=== PATIENT | female | born 2000 | race African-American/Black ===

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

== ENCOUNTER 2019-10-18 15:01 | Emergency (ER) | payer MEDICAID, OTHER ==
[~2019-10-18] VITALS: Ht 167.6 cm; Wt 63.0 kg
[~2019-10-18 15:01] MED LIST: PNV1TABL76 MT
[2019-10-18 15:20] VITALS: BP 105/62
== END 2019-10-18 15:54 | disposition home or self-care (01) ==
LOC: ER 15:01
DX: Z00.00 Encounter for general adult medical examination without abnormal findings (principal)
CPT/HCPCS: 99281

== ENCOUNTER 2020-07-12 23:10 | Emergency (ER) | payer MEDICAID, OTHER ==
[~2020-07-12] VITALS: Ht 160 cm; Wt 54.0 kg
[2020-07-13 00:02] LABS: BASOPHILS % 1.4 % (0.0-2.0); EOSINOPHILS % 4.1 % (0.0-5.0); HEMATOCRIT. 32.5 % (36.0-48.0); LYMPHOCYTES % 32.6 % (20.0-50.0); MEAN CORPUSCULAR HEMOGLOBIN 30.2 pg (28.0-32.0); MEAN CORPUSCULAR VOLUME 89.4 fL (81.0-99.0); MEAN PLATELET VOLUME 7.9 fl (7.4-10.4); MONOCYTES % 9.1 % (2.0-8.0); NEUTROPHILS % 52.8 % (40.0-76.0); PLATELET 311 x1000/uL (130-400); RED BLOOD CELL COUNT 3.63 mill/uL (4.2-5.4); RED CELL DISTRIBUTION WIDTH 14.7 % (11.6-14.6)
[2020-07-13 00:07] LABS: CHLORIDE 110 mEq/L (98-107)
[2020-07-13 00:12] LABS: ETHANOL BLOOD < 10 mg/dL
[2020-07-13 00:42] VITALS: BP 138/78
== END 2020-07-13 01:17 | disposition home or self-care (01) ==
LOC: ER 23:10
DX: F32.9 Major depressive disorder, single episode, unspecified (principal); F60.9 Personality disorder, unspecified; F17.290 Nicotine dependence, other tobacco product, uncomplicated; F12.10 Cannabis abuse, uncomplicated; F20.9 Schizophrenia, unspecified
CPT/HCPCS: 36415; 80053; 80307; 80320; 80329; 85025; 93005; 99284; G0480

== ENCOUNTER 2020-07-29 02:23 | Emergency (ER) | payer OTHER ==
[~2020-07-29] VITALS: Ht 175.3 cm; Wt 87.0 kg
[2020-07-29 04:05] VITALS: BP 134/76
== END 2020-07-29 04:34 | disposition home or self-care (01) ==
LOC: ER 02:23
DX: R42 Dizziness and giddiness (principal); Z59.0 Homelessness; Z86.59 Personal history of other mental and behavioral disorders
CPT/HCPCS: 99281

== ENCOUNTER 2021-01-27 11:17 | Emergency (ER) | payer MEDICAID, OTHER ==
[~2021-01-27] VITALS: Ht 167.6 cm; Wt 77.0 kg
[2021-01-27 11:20] VITALS: BP 135/88
== END 2021-01-27 17:47 | disposition left against medical advice (07) ==
LOC: ER 11:23
DX: R55 Syncope and collapse (principal); Z53.21 Procedure and treatment not carried out due to patient leaving prior to being seen by health care provider

== ENCOUNTER 2022-09-18 17:23 | Emergency (ER) | payer MEDICAID, OTHER ==
[~2022-09-18] VITALS: Ht 172.7 cm; Wt 84.0 kg
[2022-09-18 17:28] VITALS: O2SAT 99
[2022-09-18 20:09] LABS: BASOPHILS % 0.4 % (0.0-2.0); EOSINOPHILS % 2.1 % (0.0-5.0); HEMATOCRIT. 32.8 % (36.0-48.0); LYMPHOCYTES % 24.4 % (20.0-50.0); MEAN CORPUSCULAR HEMOGLOBIN 29.5 pg (28.0-32.0); MEAN CORPUSCULAR VOLUME 88.4 fL (81.0-99.0); MEAN PLATELET VOLUME 8.2 fl (7.4-10.4); MONOCYTES % 5.3 % (2.0-8.0); NEUTROPHILS % 67.8 % (40.0-76.0); PLATELET 358 x1000/uL (130-400); RED BLOOD CELL COUNT 3.71 mill/uL (4.2-5.4); RED CELL DISTRIBUTION WIDTH 15.1 % (11.6-14.6)
[2022-09-18 20:11] LABS: CHLORIDE 109 mEq/L (98-107)
[2022-09-18 20:15] LABS: PARTIAL THROMBOPLASTIN TIME < 21.0 sec (23.4-31.0); PROTHROMBIN TIME 10.3 sec (9.6-11.0)
[2022-09-18 20:23] LABS: ETHANOL BLOOD < 10 mg/dL (-10)
[2022-09-18 20:33] LABS: HCG SCREEN NEGATIVE
[2022-09-18 22:23] LABS: *AMPHETAMINES SCREEN URINE NEGATIVE (NEGATIVE); *BARBITURATES SCREEN URINE NEGATIVE (NEGATIVE); *BENZODIAZEPINES SCREEN URINE NEGATIVE (NEGATIVE); *COCAINE SCREEN URINE NEGATIVE (NEGATIVE); CANNABINOID URINE SCREEN NEGATIVE (NEGATIVE); METHADONE URINE SCREEN NEGATIVE (NEGATIVE); OPIATES URINE SCREEN NEGATIVE (NEGATIVE); PHENCYCLIDINE URINE SCREEN NEGATIVE (NEGATIVE)
[2022-09-19 00:41] VITALS: BP 109/61; PULSE 76; RESP 18; TEMP 98.3
== END 2022-09-19 00:58 ==
LOC: ER 17:23
DX: R07.89 Other chest pain (principal); R45.851 Suicidal ideations; F32.9 Major depressive disorder, single episode, unspecified; F20.9 Schizophrenia, unspecified; F12.10 Cannabis abuse, uncomplicated; F15.10 Other stimulant abuse, uncomplicated; Z88.0 Allergy status to penicillin
CPT/HCPCS: 36415; 71045; 80053; 80305; 80320; 83880; 84484; 84703; 85025; 93005; 99285; G0480

== ENCOUNTER 2023-05-22 01:30 | Emergency (ER) | payer MEDICAID ==
[~2023-05-22] VITALS: Ht 175.3 cm; Wt 100.0 kg
[2023-05-22 01:31] VITALS: O2SAT 99
[2023-05-22 01:54] VITALS: TEMP 98.1
[2023-05-22 03:10] LABS: BASOPHILS % 0.5 % (0.0-2.0); EOSINOPHILS % 2.1 % (0.0-5.0); HEMATOCRIT. 32.4 % (36.0-48.0); HEMOGLOBIN. 10.7 g/dL (12.0-16.0); LYMPHOCYTES % 20.5 % (20.0-50.0); MEAN CORPUSCULAR HEMOGLOBIN 26.9 pg (28.0-32.0); MEAN CORPUSCULAR HGB CONC 33.2 g/dL (31.0-37.0); MEAN CORPUSCULAR VOLUME 81.1 fL (81.0-99.0); MEAN PLATELET VOLUME 7.5 fl (7.4-10.4); MONOCYTES % 7.1 % (2.0-8.0); NEUTROPHILS % 69.8 % (40.0-76.0); PLATELET 395 x1000/uL (130-400); RED BLOOD CELL COUNT 3.99 mill/uL (4.2-5.4); RED CELL DISTRIBUTION WIDTH 15.3 % (11.6-14.6); WHITE BLOOD COUNT 9.7 x1000/uL (4.5-11.0)
[2023-05-22 03:37] LABS: ACETAMINOPHEN < 2 ug/mL (10-30); ALANINE AMINOTRANSFERASE 30 IU/L (10-49); ALBUMIN 4.7 g/dL (3.2-4.8); ASPARTATE AMINOTRANSFERASE 44 IU/L (<34); BILIRUBIN TOTAL 0.6 mg/dL (0.1-1.0); CALCIUM 9.6 mg/dL (8.7-10.4); CARBON DIOXIDE 24 mEq/L (21-32); CHLORIDE 106 mEq/L (98-107); CREATININE 0.9 mg/dL (0.6-1.0); GLUCOSE 88 mg/dL (70-105); POTASSIUM 3.7 mEq/L (3.5-5.1); PROTEIN TOTAL 7.7 g/dL (6.0-8.3); SODIUM 139 mEq/L (136-145); UREA NITROGEN BLOOD 10 mg/dL (9-23)
[2023-05-22 03:39] LABS: ETHANOL BLOOD < 10 mg/dL (<10)
[2023-05-22 03:43] LABS: HCG SCREEN NEGATIVE
[2023-05-22 05:34] LABS: *AMPHETAMINES SCREEN URINE PRESUMPTIVE POSITIVE (NEGATIVE); *BARBITURATES SCREEN URINE NEGATIVE (NEGATIVE); *BENZODIAZEPINES SCREEN URINE NEGATIVE (NEGATIVE); *COCAINE SCREEN URINE PRESUMPTIVE POSITIVE (NEGATIVE); CANNABINOID URINE SCREEN PRESUMPTIVE POSITIVE (NEGATIVE); ECSTASY MDMA SCREEN URINE CONF.TEST INDICATED (NEGATIVE); METHADONE URINE SCREEN Neg (NEGATIVE); OPIATES URINE SCREEN NEGATIVE (NEGATIVE); PHENCYCLIDINE URINE SCREEN NEGATIVE (NEGATIVE)
[2023-05-22 09:30] VITALS: BP 131/75; PULSE 82; RESP 10
== END 2023-05-22 10:18 | disposition home or self-care (01) ==
LOC: ER 01:30
DX: R45.851 Suicidal ideations (principal); F14.10 Cocaine abuse, uncomplicated; F20.9 Schizophrenia, unspecified; Z88.0 Allergy status to penicillin; F12.90 Cannabis use, unspecified, uncomplicated; F15.90 Other stimulant use, unspecified, uncomplicated
CPT/HCPCS: 36415; 80053; 80305; 80307; 80320; 80329; 84703; 85025; 93005; 99284; G0480

== ENCOUNTER 2023-05-24 18:17 | Emergency (ER) | payer MEDICAID ==
[~2023-05-24] VITALS: Ht 177.8 cm; Wt 114.0 kg
[2023-05-24 18:20] VITALS: O2SAT 100
[2023-05-24 19:49] LABS: CLARITY URINE CLOUDY (CLEAR); COLOR URINE DARK YELLOW (YELLOW); GLUCOSE URINE NEGATIVE (NEGATIVE); KETONES URINE 2+ (NEGATIVE); LEUKOCYTE ESTERASE URINE 1+ (NEGATIVE); NITRITE URINE NEGATIVE (NEGATIVE); OCCULT BLOOD URINE NEGATIVE (NEGATIVE); PROTEIN URINE 1+ (NEGATIVE); SPECIFIC GRAVITY URINE 1.036 (1.005-1.030)
[2023-05-24 19:55] LABS: BASOPHILS % 0.4 % (0.0-2.0); EOSINOPHILS % 3.9 % (0.0-5.0); HEMATOCRIT. 34.4 % (36.0-48.0); LYMPHOCYTES % 18.4 % (20.0-50.0); MEAN CORPUSCULAR HEMOGLOBIN 26.7 pg (28.0-32.0); MEAN CORPUSCULAR HGB CONC 32.1 g/dL (31.0-37.0); MEAN CORPUSCULAR VOLUME 83.2 fL (81.0-99.0); MEAN PLATELET VOLUME 7.6 fl (7.4-10.4); MONOCYTES % 5.9 % (2.0-8.0); NEUTROPHILS % 71.4 % (40.0-76.0); PLATELET 387 x1000/uL (130-400); RED BLOOD CELL COUNT 4.14 mill/uL (4.2-5.4); RED CELL DISTRIBUTION WIDTH 15.8 % (11.6-14.6); WHITE BLOOD COUNT 11.6 x1000/uL (4.5-11.0)
[2023-05-24 20:07] LABS: BACTERIA URINE 2+; RBC URINE 0-2 /hpf (0-2); SQUAMOUS EPITHELIAL CELL URINE 2+ /lpf (RARE/1+)
[2023-05-24 20:08] LABS: HCG SCREEN NEGATIVE
[2023-05-24 20:10] LABS: ACETAMINOPHEN < 2 ug/mL (10-30); ALANINE AMINOTRANSFERASE 48 IU/L (10-49); ALBUMIN 4.7 g/dL (3.2-4.8); ASPARTATE AMINOTRANSFERASE 45 IU/L (<34); BILIRUBIN TOTAL 0.5 mg/dL (0.1-1.0); CALCIUM 9.8 mg/dL (8.7-10.4); CARBON DIOXIDE 29 mEq/L (21-32); CHLORIDE 106 mEq/L (98-107); CREATININE 0.9 mg/dL (0.6-1.0); ETHANOL BLOOD < 10 mg/dL (<10); GLUCOSE 96 mg/dL (70-105); POTASSIUM 3.1 mEq/L (3.5-5.1); PROTEIN TOTAL 8.3 g/dL (6.0-8.3); SODIUM 140 mEq/L (136-145); UREA NITROGEN BLOOD 13 mg/dL (9-23)
[2023-05-24 20:13] LABS: *AMPHETAMINES SCREEN URINE PRESUMPTIVE POSITIVE (NEGATIVE); *BARBITURATES SCREEN URINE NEGATIVE (NEGATIVE); *BENZODIAZEPINES SCREEN URINE NEGATIVE (NEGATIVE); *COCAINE SCREEN URINE NEGATIVE (NEGATIVE); CANNABINOID URINE SCREEN PRESUMPTIVE POSITIVE (NEGATIVE); ECSTASY MDMA SCREEN URINE CONF.TEST INDICATED (NEGATIVE); METHADONE URINE SCREEN Neg (NEGATIVE); OPIATES URINE SCREEN NEGATIVE (NEGATIVE); PHENCYCLIDINE URINE SCREEN NEGATIVE (NEGATIVE)
[2023-05-24] MEDS: POTASSIUM CHLORIDE 20MEQ TABLET SR PO ONE (21:17)
[2023-05-24] MEDS: NITROFURANTOIN 100MG M/M CAPSULE PO STA (21:17)
[2023-05-24] MEDS: OLANZAPINE 5MG TABLET ODT PO NR (21:40)
[2023-05-24] MEDS: OLANZAPINE 5MG TABLET ODT PO ONE (21:40)
[2023-05-25 20:30] VITALS: BP 136/90; PULSE 86; RESP 16; TEMP 98.1
[2023-05-25] MEDS ORDERED: RISPERIDONE 1MG TABLET PO SCH (21:00)
== END 2023-05-25 21:20 ==
LOC: ER 18:17
DX: F29 Unspecified psychosis not due to a substance or known physiological condition (principal); Z88.0 Allergy status to penicillin; Z20.822 Contact with and (suspected) exposure to COVID-19; Z86.59 Personal history of other mental and behavioral disorders
CPT/HCPCS: 36415; 80053; 80305; 80307; 80320; 80329; 81003; 81025; 84703; 85025; 87426; 99285; G0480

== ENCOUNTER 2024-06-28 05:40 | Emergency (ER) | payer MEDICAID ==
[~2024-06-28] VITALS: Ht 175.3 cm; Wt 87.0 kg
[2024-06-28 05:42] VITALS: O2SAT 100
[2024-06-28 08:44] LABS: BASOPHILS % 0.5 % (0.0-2.0); EOSINOPHILS % 1.8 % (0.0-5.0); HEMATOCRIT. 33.5 % (36.0-48.0); HEMOGLOBIN. 11.1 g/dL (12.0-16.0); LYMPHOCYTES % 22.8 % (20.0-50.0); MEAN CORPUSCULAR HEMOGLOBIN 28.6 pg (28.0-32.0); MEAN CORPUSCULAR HGB CONC 33.2 g/dL (31.0-37.0); MEAN CORPUSCULAR VOLUME 86.1 fL (81.0-99.0); MEAN PLATELET VOLUME 7.9 fl (7.4-10.4); MONOCYTES % 6.9 % (2.0-8.0); PLATELET 357 x1000/uL (130-400); RED BLOOD CELL COUNT 3.89 mill/uL (4.2-5.4); RED CELL DISTRIBUTION WIDTH 15.1 % (11.6-14.6); WHITE BLOOD COUNT 8.5 x1000/uL (4.5-11.0)
[2024-06-28 08:49] LABS: CHLORIDE 105 mEq/L (98-107); SODIUM 140 mEq/L (136-145)
[2024-06-28 08:50] LABS: CALCIUM 10.5 mg/dL (8.7-10.4); CARBON DIOXIDE 29 mEq/L (21-32)
[2024-06-28 08:55] LABS: CREATININE 0.7 mg/dL (0.6-1.0); GLUCOSE 100 mg/dL (70-105); UREA NITROGEN BLOOD 9 mg/dL (9-23)
[2024-06-28 08:58] LABS: ETHANOL BLOOD < 10 mg/dL (<10)
[2024-06-28 09:47] LABS: HCG SCREEN NEGATIVE
[2024-06-28 14:47] LABS: CLARITY URINE CLOUDY (CLEAR); COLOR URINE YELLOW (YELLOW); GLUCOSE URINE NEGATIVE (NEGATIVE); KETONES URINE 1+ (NEGATIVE); LEUKOCYTE ESTERASE URINE 3+ (NEGATIVE); NITRITE URINE NEGATIVE (NEGATIVE); OCCULT BLOOD URINE 2+ (NEGATIVE); PROTEIN URINE TRACE (NEGATIVE); SPECIFIC GRAVITY URINE 1.027 (1.005-1.030); UROBILINOGEN URINE 0.2 E.U./dL (0.2-1.0)
[2024-06-28 15:14] LABS: *AMPHETAMINES SCREEN URINE PRESUMPTIVE POSITIVE (NEGATIVE); *BARBITURATES SCREEN URINE NEGATIVE (NEGATIVE); *BENZODIAZEPINES SCREEN URINE NEGATIVE (NEGATIVE); *COCAINE SCREEN URINE NEGATIVE (NEGATIVE); METHADONE URINE SCREEN NEGATIVE (NEGATIVE)
[2024-06-28 15:15] LABS: CANNABINOID URINE SCREEN PRESUMPTIVE POSITIVE (NEGATIVE); ECSTASY MDMA SCREEN URINE CONF.TEST INDICATED (NEGATIVE); OPIATES URINE SCREEN NEGATIVE (NEGATIVE); PHENCYCLIDINE URINE SCREEN NEGATIVE (NEGATIVE)
[2024-06-28 15:23] LABS: MUCUS URINE 2+ /lpf (< = 2+); SQUAMOUS EPITHELIAL CELL URINE 3+ /lpf (RARE/1+)
[2024-06-28 15:25] LABS: WBC URINE TNTC /hpf (0-2)
[2024-06-28 15:27] LABS: BACTERIA URINE 4+
[2024-06-28] MEDS: RISPERIDONE 0.5MG TABLET PO SCH (22:17)
[2024-06-29] MEDS: NITROFURANTOIN 100MG M/M CAPSULE PO SCH (08:52)
[2024-06-29 23:07] VITALS: BP 125/70; PULSE 86; RESP 18; TEMP 36.8; O2SAT 99
== END 2024-06-29 23:31 ==
LOC: ER 05:42
DX: R45.851 Suicidal ideations (principal); F31.9 Bipolar disorder, unspecified; Z79.899 Other long term (current) drug therapy; Z88.0 Allergy status to penicillin; Z20.822 Contact with and (suspected) exposure to COVID-19
CPT/HCPCS: 36415; 80048; 80305; 80307; 80320; 80329; 81003; 84703; 85025; 87077; 87426; 99285; G0480